=== PATIENT | female | born 1935 | race Caucasian/White ===

== ENCOUNTER 2017-11-01 14:46 | Emergency (ER) | payer OTHER ==
[2017-11-01 15:06] VITALS: BMI 29.2
--- NOTE | 2017-11-01 15:07 | PDOC ---
Rapid Medical Evaluation Time Seen by Provider: 11/01/17 15:00 Medical Evaluation: 11/01/17 15:00 Pt presents to the ED: uri s/s x 2 days, 4am wednesday morning fell and struck face , Pt also states loc for unknown amt of time and unsure if she was dizzy prior to fall, denies cp, pt went to PMD today and recommended imaging Pt on brief exam: right eyebrow tenderness with edema/ecchymosis, ambulatory with cane, VSS Pt ordered for: facial/head and cervical ct, rt wrist xray and cardiac w/u Pt to proceed to the ED Discharge Disposition - Diagnosis Syncope - Referrals Referrals: Cynthia Fitch [Primary Care Provider] - - Patient Instructions - Post Discharge Activity
[2017-11-01 15:28] LABS: BASO % 0.8 % (0-2.0); EOS % 0.7 % (0-4.5); HEMATOCRIT 38.1 % (32.4-45.2); HEMOGLOBIN 12.5 GM/dL (10.7-15.3); LYMPH % 30.6 % (8-40); MCH 28.9 pg (25.7-33.7); MCHC 32.8 g/dl (32.0-36.0); MEAN CELL VOLUME 88.1 fl (80-96); MEAN PLT VOLUME 8.4 fl (7.5-11.1); MONO % 12.8 % (3.8-10.2); NEUT % 55.1 % (42.8-82.8); PLATELET COUNT 219 K/MM3 (134-434); RBC 4.32 M/mm3 (3.60-5.2); RDW 14.1 % (11.6-15.6); WHITE BLOOD COUNT 3.6 K/mm3 (4.0-10.0)
[2017-11-01 15:50] LABS: INR 0.99 (0.82-1.09); PROTHROMBIN TIME (PATIENT) 11.2 SEC (9.98-11.88)
[2017-11-01 15:59] LABS: ALBUMIN 3.6 g/dl (3.4-5.0); ANION GAP 10 (8-16); BILIRUBIN,TOTAL 0.3 mg/dL (0.2-1.0); BLOOD UREA NITROGEN 15 mg/dL (7-18); CHLORIDE 99 mmol/L (98-107); CO2 26 mmol/L (21-32); CREATININE 0.9 mg/dL (0.55-1.02); GLUCOSE,RANDOM 183 mg/dL (74-106); POTASSIUM 3.9 mmol/L (3.5-5.1); SGOT/AST 22 U/L (15-37); SGPT/ALT 24 U/L (12-78); SODIUM 135 mmol/L (136-145)
[2017-11-01 16:02] LABS: ALK PHOS 59 U/L (45-117)
--- NOTE | 2017-11-01 16:14 | PDOC ---
History of Present Illness - General Chief Complaint: Syncope/Near Syncope Stated Complaint: SENT BY PCP Time Seen by Provider: 11/01/17 15:00 - History of Present Illness Initial Comments: 11/01/17 17:08 The patient is an 82 year old female with a history of DM, HTN, HLD who presents for evaluation following a fall and possible syncopal episode. The patient is accompanied by her daughter who assists in providing the history. They report that the patient fell 1 day ago when getting out of bed to go to the bathroom. The patient does not remember how she fell but reports LOC and head trauma. They presented to the patient's primary care provider today who evaluated her in the office prior to sending her to the ER for further imaging. The patient denies headache, fevers, chills, SOB, chest pain, abdominal pain, nausea, vomiting, or changes with urination or bowel movements. Past History - Past Medical History Allergies/Adverse Reactions: Allergies Allergy/AdvReac Type Severity Reaction Status Date / Time No Known Allergies Allergy Verified 11/01/17 15:03 Home Medications: Ambulatory Orders Alendronate Sodium [Binosto] 70 mg PO WEEKLY 11/01/17 Aspirin 81 mg PO DAILY 11/01/17 Atorvastatin Ca [Lipitor] 10 mg PO DAILY 11/01/17 Clobetasol Propionate/Emoll [Clobetasol Emollient 0.05% Crm] 15 gm TP DAILY 06/11 Glimepiride [Amaryl] 4 mg PO DAILY 11/01/17 Halobetasol Prop 0.05% Tp Crm [Ultravate (Nf)] 1 applic TP DAILY 11/01/17 Losartan Potassium [Cozaar] 100 mg PO DAILY 11/01/17 Metformin HCl 500 mg PO HS 11/01/17 Metformin HCl [Metformin HCl ER] 1,000 mg PO DAILY 11/01/17 Torsemide [Demadex] 10 mg PO DAILY 11/01/17 - Suicide/Smoking/Psychosocial Hx Smoking History: Never smoked Review of Systems - Review of Systems Comments:: 11/01/17 17:14 Constitutional: No fevers, chills, fatigue, malaise HEENT: No Rhinorrhea, nasal congestion, visual changes Cardiovascular: Syncopal. No chest pain, palpitations, lightheadedness Respiratory: No Cough, SOB, Hemoptysis, Gastrointestinal: No Abdominal pain, Nausea, Vomiting, Constipation, Diarrhea, Melena Genitourinary: No Dysuria, Frequency, Urgency, Hesitancy, Hematuria, Flank pain Musculoskeletal: No Myalgia, arthralgia Skin: No rashes, bruising, pallor Neurologic: No Headache, Dizziness, Numbness, Weakness, or Tingling Psychiatric: No Hallucinations. No SI or HI *Physical Exam - Vital Signs Last Vital Signs Temp Pulse Resp BP Pulse Ox 98.8 F 74 19 143/67 98 11/01/17 15:03 11/01/17 15:03 11/01/17 15:03 11/01/17 15:03 11/01/17 15:03 - Physical Exam Comments: 11/01/17 17:15 General Appearance: Nourished. No Apparent Distress HEENT: EOMI, HARRIS. Obvious ecchymosis to the right eye and eyebrow with tenderness to palpation. No Pharyngeal Erythema, Tonsillar Exudate, Tonsillar Erythema Neck: No Cervical Lymphadenopathy Respiratory/Chest: Lungs Clear, Normal Breath Sounds. No Crackles, Rales, Rhonchi, Wheezing Cardiovascular: Regular Rhythm, Regular Rate. No Murmur, Gallops, Rubs Gastrointestinal/Abdominal: Normal Bowel Sounds, Soft. No Guarding, Rebound, Tenderness Musculoskeletal: No CVA Tenderness Extremity: Normal range of motion of the right wrist and right knee. Sensation to light touch and temperature intact bilaterally in all four extremities. Normal Capillary Refill Integumentary: Normal Color, Dry, Warm Neurologic: photoengraving finisher II-XII NML intact, Fully Oriented, Alert, Normal Mood/Affect, Normal Response, Motor Strength 5/5. Normal Finger to Nose and Heel to [place] ED Treatment Course - LABORATORY CBC & Chemistry Diagram: 11/01/17 15:20 11/01/17 15:20 - ADDITIONAL ORDERS Additional order review: Laboratory Results 11/01/17 15:20 PT with INR 11.20 INR 0.99 11/01/17 15:20 RBC 4.32 MCV 88.1 MCHC 32.8 RDW 14.1 MPV 8.4 Neutrophils % 55.1 Lymphocytes % 30.6 Monocytes % 12.8 H Eosinophils % 0.7 Basophils % 0.8 Medical Decision Making - Medical Decision Making 11/01/17 17:19 The patient is an 82 year old female with a history of DM, HTN, HLD who presents for evaluation following a fall and possible syncopal episode. Differential includes but is not limited to: Intracranial process, fracture, acs, infectious, metabolic derangement. Given the patient's obvious head trauma , we will obtain ct imaging to evaluate for intracranial process or fractures. We will obtain cbc, cmp, troponin, ekg to evaluate for other etiologies of her fall as well. We will continue to monitor and reassess. 11/01/17 20:06 cbc, cmp, troponin, ekg are unremarkable. CT scans are unremarkable and only demonstrate a dental cyst that can be followed up on an outpatient basis. The patient appears clinically well and given that her fall was over 24 hours ago we are comfortable with discharging the patient home at this time with primary care provider follow up. We discussed the results and the plan with the patient who voiced understanding and is agreeable with the plan. *DC/Admit/Observation/Transfer Diagnosis at time of Disposition: Syncope Qualifiers: Syncope type: unspecified Qualified Code(s): R55 - Syncope and collapse Fall Qualifiers: Encounter type: subsequent encounter Qualified Code(s): W19.XXXD - Unspecified fall, subsequent encounter - Discharge Dispostion Disposition: HOME Condition at time of disposition: Good Admit: No - Referrals Referrals: Cynthia Fitch [Primary Care Provider] - - Patient Instructions Printed Discharge Instructions: DI for Syncope in Adults (Fainting) Additional Instructions: Please return to the ER if you experience concerning or worsening symptoms including worsening headache, dizziness, chest pain, or weakness. Your lab results were normal here in the ER. Your x-rays and ct scans did not show anything acute on them however your face ct scan showed a dental cyst that you should call to schedule a follow up appointment with an oral surgeon to be evaluated. Please call to schedule a follow up appointment with your primary care provider within 1 week to discuss your ER visit and further management of your symptoms. - Post Discharge Activity
--- NOTE | 2017-11-01 17:54 | PDOC ---
Attending Attestation - Resident Resident Name: ShaniaCandido - ED Attending Attestation I have performed the following: I have examined & evaluated the patient, The case was reviewed & discussed with the resident, I agree w/resident's findings & plan, Exceptions are as noted - HPI HPI: 11/01/17 17:49 alert 82 yo female referred to ER by her primary doctor for evaluation HPI: this pt had a fall at home the day before and hit her head and states she has LOC at the time. She does not remember how she fell. -HEAD + ecchymosis abut the rt periorbital area, eyes rustam eomi -no monroy signs -ears :no hemotypanum no cervical vertebral tenderness lung scta b/l cvs [id number] abd soft,nontender ext there is ecchymosi about the rt wrist 11/01/17 21:06 - Physicial Exam PE: 11/01/17 21:11 please see above description - Medical Decision Making 11/01/17 18:01 ct head NO BLEED, NO FX cxr napd wrist no acute fracture appreciated 11/01/17 21:12 IMP head trauma/rt wrist contuison
[2017-11-01] MEDS ORDERED: IBUPROFEN 600 MG TABLET (FP) PO ONE ×2 (19:48→19:49)
[2017-11-01 20:32] VITALS: BP 140/67; PULSE 72; TEMP 98.6
--- NOTE | 2017-11-02 15:12 | EKG ---
Test Reason : Blood Pressure : / mmHG Vent. Rate : 068 BPM Atrial Rate : 068 BPM P-R Int : 166 ms QRS Dur : 150 ms QT Int : 426 ms P-R-T Axes : 047 -26 097 degrees QTc Int : 452 ms NORMAL SINUS RHYTHM LEFT BUNDLE BRANCH BLOCK ABNORMAL ECG NO PREVIOUS ECGS AVAILABLE Confirmed by Hao Cheng MD ([id number]) on 11/02/2017 3:11:49 PM Referred By: Confirmed By:Hao Cheng MD
== END 2017-11-01 20:51 | disposition home or self-care (01) ==
LOC: JER 14:46
DX: S06.899A Other specified intracranial injury with loss of consciousness of unspecified duration, initial encounter (principal); S00.03XA Contusion of scalp, initial encounter; S60.211A Contusion of right wrist, initial encounter; W06.XXXA Fall from bed, initial encounter; Y93.89 Activity, other specified; Y92.032 Bedroom in apartment as the place of occurrence of the external cause; Y99.8 Other external cause status; I10 Essential (primary) hypertension; E78.00 Pure hypercholesterolemia, unspecified; E11.9 Type 2 diabetes mellitus without complications; Z79.84 Long term (current) use of oral hypoglycemic drugs; Z79.82 Long term (current) use of aspirin
CPT/HCPCS: 36415; 70450-TC; 70486-TC; 71046-TC; 72125-TC; 73110-TC-RT; 80053; 82550; 82553; 83735; 84484; 85025; 85610; 93005; 93010; 99285-25